=== PATIENT | female | born 1960 | race Caucasian/White ===

== ENCOUNTER 2025-05-07 10:16 | Outpatient (AMB) | payer MEDICARE, MEDICAID, SELFPAY ==
--- NOTE | 2025-05-07 10:23 | MHC.OFFVIS ---
Vital Signs 05/07/25 10:27 Height 5 ft 8 in Weight 234 lb 6 oz BMI 35.6 BP 128/82 Blood Pressure Location Rt brachial Position Sitting Pulse 110 H Pulse Source Pulse Oximeter Pulse Oximetry (%) 97 Oxygen Delivery Method Room Air Intake Visit Reasons: ENP-Seizure/ho brain Meningioma /Headache Intake Note: Seizure's disorder, h/o brain meningioma Manager Pmo Required: No Accompanied by: Self / Same As Patient Allergies albuterol Allergy (Unknown, Verified 05/07/25 10:24) Unknown hydromorphone (From Dilaudid) Allergy (Unknown, Verified 05/07/25 10:24) Unknown lamotrigine (From Lamictal) Allergy (Unknown, Verified 05/07/25 10:24) Unknown pregabalin (From Lyrica) Allergy (Unknown, Verified 05/07/25 10:24) Vomiting Medication List - Last Reconciled 05/07/25 by Pilar Dangelo MD amitriptyline 75 mg PO BEDTIME amlodipine 10 mg PO DAILY atorvastatin 20 mg PO BEDTIME carbamazepine ER (Carbatrol) 600 mg PO BID cholecalciferol (vitamin D3) 25 mcg PO DAILY fluticasone propionate 50 mcg/actuation 1 spray intranasal BID gabapentin 300 mg PO TID levocetirizine 5 mg PO QPM lorazepam 1 mg PO DAILY PRN losartan 100 mg PO DAILY melatonin 3 mg PO BEDTIME PRN piroxicam 40 mg PO DAILY PRN sertraline 50 mg PO DAILY HPI Comments Details: 64y/o female comes for further management of Ice pick headaches- managed by Pain Management , seizures since her frontal meningioma resection. In 1996 she had her first grand mal seizure while she was driving . she was found to have a Left frontal meningioma that was resected by . she continued to have seizures- no grand mal but has right hand shaking headaches, inability to speak , confused and sleeps for 5 hrs after the episode. she has 3-4 episode a month she is on carbatrol 1200mg per day and still has breakthrough seizures 3-4 a month.sometimes she has an aura and can sit down EEG in 2011 was normal she does not drive. she lives alone but her daughter lives 1 mile and she lives in an apartment complex with neighbors. she has been in the hospital few times - due to reaction to new antiepileptics. when she has headaches are severe she gets seizures.she has tried botox- she could not tolerate. she is still tearful about her mother who 1 year ago . The patient is talking to a therapist . [facility] Medical History (Updated 05/07/25 @ 11:07 by Pilar Dangelo MD) Generalized headaches Seizure disorder Gait disorder Unsteady Tobacco dependence Speech impediment Seizure disorder Weakness of right side of body Prediabetes Obesity, class 1 Migraine MDD (major depressive disorder) Hyponatremia Hypokalemia Hypochloremia Hyperlipidemia HTN (hypertension) Headache H/O meningioma of the brain Generalized anxiety disorder with panic attacks DJD (degenerative joint disease), cervical Brain neoplasm Allergic rhinitis Surgical History S/P ankle ligament repair Hx of craniotomy Family History Father CAD (coronary artery disease) Mother Skin cancer Brother Alcoholism Social History Alcohol intake: current Comment: 1-2 times per week Patient Tobacco Use Status: Former Tobacco user Substance Use Type: Marijuana Physical Exam Vital Signs: Last Vital Signs Pulse 110 H 05/07/25 10:27 BP 128/82 05/07/25 10:27 Pulse Ox 97 05/07/25 10:27 Oxygen Delivery Method Room Air 05/07/25 10:27 BMI result Body Mass Index 35.6 Const General: cooperative, healthy appearing, comfortable and anxious Nutritional Appearance: overweight Orientation/consciousness: patient oriented x3 Eyes Pupils: Equal, round and reactive pupils present Neuro General: patient oriented x3, gait normal, tone normal, moves all extremities and no focal motor deficits Cranial nerves: Yes Facial sensation intact/muscles of mastication intact, Yes Equal, round and reactive pupils present, Yes Bilaterally intact EOM present, Yes Nystagmus not present, Yes Normal facial strength present, Yes Midline tongue present and Yes Ability to bilaterally elevate shoulders present Cognition (Neuro): normal cognition Gait exam (Neuro): Normal gait present Motor exam (neuro): 5/5 motor strength present throughout and Normal motor muscle tone present throughout Deep tendon reflexes (DTR's): Right triceps reflex intensity grade: 2+, Left triceps reflex intensity grade: 2+, Rt Biceps (C5, C6): 2+, Left biceps reflex intensity grade: 2+, Right brachioradialis reflex intensity grade: 2+, Left brachioradialis reflex intensity grade: 2+, Right patellar reflex intensity grade: 1+ and Left patellar reflex intensity grade: 1+ Coordination: [id number] test normal Psych Appearance: well kempt Mental Status: mental status grossly normal Speech and movement: Clear speech present Affect: Depressed mood present Attitude: cooperative Thought process: Normal thought process present Assessment & Plan Assessment & Plan (1) Seizure disorder: Code(s): G40.909 - Epilepsy, unspecified, not intractable, without status epilepticus Category: Medical (2) MDD (major depressive disorder): Code(s): F32.9 - Major depressive disorder, single episode, unspecified Category: Medical Qualifiers: Major depression recurrence: recurrent Active/Remission status: in remission of unspecified degree Qualified Code(s): F33.40 - Major depressive disorder, recurrent, in remission, unspecified (3) Generalized anxiety disorder with panic attacks: Code(s): F41.1 - Generalized anxiety disorder; F41.0 - Panic disorder [episodic paroxysmal anxiety] Category: Medical (4) Generalized headaches: Code(s): R51.9 - Headache, unspecified Category: Medical Plan I will trial her on sertraline 50mg qd for depression and anxiety F/u pain management for headaches Continue carbatrol 300mg - 2 caps bid gabapentin 300mg tid amitriptyline 75 mg qhs Lorazepam 1mg prn qd Orders: Referrals Psychiatry Outpatient Consultation Service F32.9 - Major depressive disorder, single episode, unspecified, F41.0 - Panic disorder [episodic paroxysmal anxiety], F41.1 - Generalized anxiety disorder Medications: New sertraline 50 mg PO DAILY 30 tabs 6RF carbamazepine ER (Carbatrol) 600 mg (2 x 300 mg) PO BID 360 caps 6RF gabapentin 300 mg PO TID 270 caps 6RF lorazepam 1 mg PO DAILY PRN 30 tabs 0RF anxiety amitriptyline 75 mg (3 x 25 mg) PO BEDTIME 270 tabs 6RF Coding Level of Care Code New Pt Level 4 (42521) Complex EM visit Add On G2211 Diagnoses Seizure disorder G40.909 Recurrent major depressive disorder, in remission F33.40 Major depression recurrence: recurrent Active/Remission status: in remission of unspecified degree Generalized anxiety disorder with panic attacks F41.1; F41.0 Generalized headaches R51.9
[2025-05-07 10:27] VITALS: BP 128/82; PULSE 110; O2SAT 97; BMI 35.6
== END 2025-05-07 11:13 | disposition home or self-care (01) ==
LOC: HO.HSMS 10:16
PROVIDERS: PCP Nurse Practitioner Family; Visit Provider Psychiatry & Neurology Neurology
DX: G40.909 Epilepsy, unspecified, not intractable, without status epilepticus (principal); F33.40 Major depressive disorder, recurrent, in remission, unspecified; F41.1 Generalized anxiety disorder; F41.0 Panic disorder [episodic paroxysmal anxiety]; R51.9 Headache, unspecified
CPT/HCPCS: 99204; G2211

== ENCOUNTER → 2025-05-07 10:16 | Outpatient (BNVA) | payer MEDICARE, MEDICAID, SELFPAY | PROVIDERS: PCP Nurse Practitioner Family; Visit Provider Psychiatry & Neurology Neurology | DX: G40.909 Epilepsy, unspecified, not intractable, without status epilepticus (principal); F33.40 Major depressive disorder, recurrent, in remission, unspecified; F41.1 Generalized anxiety disorder; F41.0 Panic disorder [episodic paroxysmal anxiety]; R51.9 Headache, unspecified | CPT/HCPCS: 99202 ==